=== PATIENT | female | born 1950 | race Caucasian/White ===

== ENCOUNTER → 2016-05-18 | Outpatient (CLI) | payer MEDICARE ==
--- NOTE | 2016-05-18 10:27 | RADIOLOGY REPORT PS360 ---
CHEST(2 VIEWS-NOT PORTABLE) HISTORY: Lung cancer follow-up HX OF LUNG CA-- YEARLY-- COMPARISON: 10/02/2015 FINDINGS: The cardiomediastinal silhouette and pulmonary vascularity are within normal limits. Status post left upper lobectomy with left apical pleural thickening, left-sided volume loss, and slightly elevated left hemidiaphragm. Surgical clips are present in the left hilar region. There are old left-sided rib fractures/surgical changes with some tenting of the left hemidiaphragm unchanged. Right apical fibrocalcific changes are noted. The right lung is otherwise clear. No acute bony anomalies. IMPRESSION: 1. Postsurgical changes. Stable compared to 10/02/2015
--- NOTE | 2016-05-18 10:53 | RADIOLOGY REPORT PS360 ---
DIG MAMM-SCREEN MARCO A W/CAD CAD Screening ORDERING PHYSICIAN : AMADOR MENDES APRN PATIENT AGE: 66 years GENDER: Female COMPARISON: Previous mammograms: June 2011 and March 2014 . Also film screen study from 2008 INDICATION: Routine screening 65-year-old. Taking estrogen. Partial hysterectomy. Also history of lung cancer. Note Patient reports a thick ridge of tissue at the left anterior chest wall. Chest x-ray also performed today. Family history. Paternal aunt with breast cancer. TECHNIQUE: Standard CC and MLO images were obtained. R2 CAD reviewed. FINDINGS: No significant interval change moderate breast density is seen at the retroareolar region and anterior breast bilaterally mild asymmetry is similar to previous studies with stable architecture. No dominant mass nor suspicious calcifications either breast. Areas of low-density asymmetric fibroglandular tissue are seen but unchanged and stable..,. Can be followed safely. IMPRESSION:...... Stable bilateral mammogram. No new areas of concern. BI-RADS CATEGORY: 1_Negative RECOMMENDED FOLLOWUP: 12M 12 MONTH FOLLOW-UP (A letter has been sent to the patient regarding results of the study.)
== END ==
LOC: RAD 09:30
DX: Z12.31 Encounter for screening mammogram for malignant neoplasm of breast (principal)
CPT/HCPCS: G0202

== ENCOUNTER → 2016-06-23 | Outpatient (CLI) | payer MEDICARE ==
--- NOTE | 2016-06-23 10:23 | CARDIOVASCULAR REPORT ---
"Cerebrovascular Exam Indications: 780.4 Dizziness and giddiness. IMPRESSIONS 1. The bilateral vertebral arteries are patent with normal antegrade flow. 2. Study suggests less than 20% stenosis involving the right internal carotid artery and the left internal carotid artery. Carotid duplex study. Complete study and Doppler flow study including spectral analysis, color and monroe scale imaging. Height: Height: 157.5cm. Height: 62in. Weight: Weight: 62.1kg. Weight: 136.7lb. Body mass index: BMI: 25.1kg/m^2. Body surface area: BSA: 1.66m^2. Location: Vascular laboratory. Patient status: Outpatient. Tables: Arterial flow: + +--------+--------+ |Location |V sys |V ed | + +--------+--------+ |Right CCA - proximal|112cm/s |40.9cm/s| + +--------+--------+ |Right CCA - distal |91.9cm/s|40.9cm/s| + +--------+--------+ |Right ECA |138cm/s |--------| + +--------+--------+ |Right ICA - proximal|94.3cm/s|41.9cm/s| + +--------+--------+ |Right ICA - mid |122cm/s |59.4cm/s| + +--------+--------+ |Right ICA - distal |115cm/s |49.5cm/s| + +--------+--------+ |Right vertebral |51.9cm/s|--------| + +--------+--------+ |Left CCA - proximal |104cm/s |36.9cm/s| + +--------+--------+ |Left CCA - distal |119cm/s |41.6cm/s| + +--------+--------+ |Left ECA |98.7cm/s|--------| + +--------+--------+ |Left ICA - proximal |103cm/s |42.7cm/s| + +--------+--------+ |Left ICA - mid |86.7cm/s|39.6cm/s| + +--------+--------+ |Left ICA - distal |126cm/s |49.7cm/s| + +--------+--------+ |Left vertebral |70.4cm/s|--------| + +--------+--------+ Velocity ratios: + + + + + + | |Right, V sys|Right, V ed|Left, V sys|Left, V ed| + + + + + + |Max ICA/dist CCA|1.33 |1.45 |1.06 |1.19 | + + + + + + (Report amended ) Electronically signed by: Yunior Ortega [id number]"
--- NOTE | 2016-06-24 10:38 | RADIOLOGY REPORT PS360 ---
MRI-BRAIN W/O HISTORY: Dizziness angulated in its, presyncope, headache, history of lung cancer DIZZINESS AND GIDDINESS ORDERING PHYSICIAN: AMADOR MENDES APRN PATIENT AGE: 66 years COMPARISON: None TECHNIQUE: Standard multiplanar multiecho sequences are performed without contrast. FINDINGS: No midline shift, mass effect, intracranial hemorrhage, hydrocephalus, or acute infarction. There is generalized cerebral atrophy which is more prominent in the frontal and parietal regions. Scattered periventricular and subcortical T2 white matter hyperintensities are present consistent with ischemic gliotic change from microvascular disease. No strictured diffusion evident that would indicate an area of acute infarction. The cerebellopontine angles, cerebellum, and brainstem are unremarkable. Partially the sella noted as a normal variant. Partial fusion of C2 and C3 vertebral bodies. Unremarkable hippocampal structures are symmetric temporal horns. No mastoid effusion or sinus air-fluid level IMPRESSION: 1. No acute intracranial pathology. 2. Moderate atrophy of the frontal and parietal lobes. 3. Mild periventricular ischemic gliotic change 4. No evidence of metastatic disease
== END ==
LOC: RAD 09:41
DX: R42 Dizziness and giddiness (principal)

== ENCOUNTER 2017-03-29 17:42 | Emergency (ER) | payer MEDICARE ==
[~2017-03-29] VITALS: Ht 160 cm; Wt 63.5 kg
--- OUTSIDE RECORDS SUMMARY | 2017-03-29 18:07 | External Medical Summary Rpt ---
Author Author DAVID Darling, [employer] Address Unknown Phone Unavailable
--- OUTSIDE RECORDS SUMMARY | 2017-03-29 18:07 | External Medical Summary Rpt | CCD ---
Demographics Preferred Language Yemeni Marital Status Unknown Moravian Affiliation Unknown Race Unknown Ethnic Group Unknown Author Author , DAVID HERNANDEZ Address Unknown Phone [email or web address] Immunization Name Date Rout CVX Reac Dose Comm Prov Is Faci e tion ent ider Refu lity Give sed n Hep 05-2 45 999 Hist H109 No H109 B, 4-19 oric UF 96 al Info rmat ion - Sour ce Unsp ecif ied
--- OUTSIDE RECORDS SUMMARY | 2017-03-29 18:07 | External Medical Summary Rpt | CCD ---
Author Author DAVID Address Unknown Phone [email or web address] Purpose Continuity of Care Document - through 2016
--- OUTSIDE RECORDS SUMMARY | 2017-03-29 18:07 | External Medical Summary Rpt | CCD ---
Author Author [employer] Organization [employer] Address Unknown Phone Unavailable Purpose Continuity of Care Document - through 2016
--- OUTSIDE RECORDS SUMMARY | 2017-03-29 18:07 | External Medical Summary Rpt | CCD ---
Author Author DAVID Address Unknown Phone [email or web address] Purpose Continuity of Care Document - through 2016
--- OUTSIDE RECORDS SUMMARY | 2017-03-29 18:07 | External Medical Summary Rpt | CCD ---
Demographics Preferred Language Paraguayan Marital Status Unknown Hoahaoism Affiliation Unknown Race Unknown Ethnic Group Unknown Author Author , DAVID HERNANDEZ Address Unknown Phone [email or web address] Immunization Name Date Rout CVX Reac Dose Comm Prov Is Faci e tion ent ider Refu lity Give sed n Hep 05-2 45 999 Hist H109 No H109 B, 4-19 oric UF 96 al Info rmat ion - Sour ce Unsp ecif ied
--- NOTE | 2017-03-29 19:03 | Emergency Room Report ---
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 N Clinical Suspician of Infection? N Mental Status: 1 - Regular (Normal Baseline) Sepsis Risk:Low Sepsis Risk Have you (or family members/close friends) recently traveled outside the [place]? N If Yes, where/when: Have you had exposure to infectious disease within the past month? TB? Other? Specify: Source patient, RN notes reviewed, family, RN/MD Exam Limitations no limitations Comment The patient is here with a foreign body sensation in her throat after eating steak around 4pm today, and feeling that a piece of this steak got stuck in her mid esophagus..Denies any previous similar episodes in the past. She tried to drink fluids since this event but everything "came right up". ALLERGIES Coded Allergies: No Known Allergies (03/29/17) History Medical History General COPD? Yes Gastric ulcers? Yes Cancer? Yes Site: LEFT LUNG Immunization Hx Ped.Immunizations UTD Yes DT/Tetanus 1-4 Years Ago Surgical Hx Previous Surgery?Y LUNG PARTIAL REMOVAL HYSTERECTOMY Social History Smoking Hx Smoker: Never Smoker Tobacco: No Type N/A Are you/the child exposed to second-hand smoke: No Alcohol Alcohol: No Review of Systems All Other Systems Reviewed and Negative Gastrointestinal nausea, vomiting Physical Exam Vital Signs Vital Signs Date Time Temp Pulse Resp B/P Pulse O2 O2 Flow FiO2 Ox Delivery Rate 03/29 1923 85 22 144/95 98 03/29 1746 85 22 157/99 98 General Appearance normal appearance, WD/WN, mild distress Respiratory Status Yes: trachea midline, chest symmetrical, non tender chest. No: respiratory distress. Lung Sounds bilateral: normal breath sounds, lungs clear. Cardiovascular normal exam, regular rate/rhythm, no peripheral edema, no gallop, no JVD, no murmur, no rub, normal peripheral pulses Gastrointestinal normal bowel sounds, soft, no organomegaly, tenderness ( epigastric tenderness) Extremities non-tender, normal range of motion, normal inspection Neurologic alert, maintenance representative II-XII nml as tested, normal exam, oriented x 3 Mental status normal mood/affect Skin intact, normal color, warm/dry Medical Decision Making LABS/Meds/Orders Pt receiving controlled substance in ED? No Comment 1814-case d/w Dr Oconnor, advised he will come in to evalaute the patient and take her to OR for EGD. 1844-RN advised the patient vomited the piece of stek and she is now able to drink fluids in no acute distress. 1899-dr Oconnor called back, advised of the update, will d/c patient home, and instruct her to see the surgeon in the office. Results/Orders Current Medication Orders Sig/Kelley Start time Last Medication Dose Route Stop Time Status Admin Metoclopramide HCl 10 MG ONCE ONE 03/29 1845 DC 03/29 IVP 03/29 1846 185 Metoclopramide HCl 0 .STK-MED ONE 03/29 184 DC .ROUTE Glucagon 1 MG ONCE ONE 03/29 1800 DC 03/29 IM 03/29 1801 180 Glucagon 0 .STK-MED ONE 03/29 175 DC .ROUTE Orders Procedure Date/time Status NECK SOFT TISSUE 03/29 1749 Active XRAY/CT/US XRAY/CT/US XRAY soft tissue lateral neck - no radio-opaque FB seen Departure Departure Time of Disposition 1933 Disposition DC Home or Self Care(routine) Clinical Impression Primary Impression: Foreign body Condition STABLE Referrals Elvin NERI,CONNIE Mensah APRN (Family) Patient Instructions DI for Foreign Body, Swallowed-Adult Additional Instructions Please follow-up with the general surgeon, Dr. Oconnor, call the office in the morning in order to schedule a follow-up appointment. Please follow-up with Connie Brennan, as well, in order to deteriorate your follow -up appointment. Discharge Counseling Counseled pt/family regarding diagnosis, test results, medications/RX, home care, follow up needs Comment Please follow-up with the general surgeon, Dr. Oconnor, call the office in the morning in order to schedule a follow-up appointment. Please follow-up with Connie Brennan, as well, in order to deteriorate your follow -up appointment. ED Critical Care Critical Care No at [id number]
[2017-03-29 19:23] VITALS: BP 144/95
--- NOTE | 2017-03-29 20:00 | RADIOLOGY REPORT PS360 ---
NECK SOFT TISSUE HISTORY: Choked on a piece of food FOOD BOLUS ORDERING PHYSICIAN: Jared Cade MD PATIENT AGE: 67 years COMPARISON: None FINDINGS: No obvious radio opaque foreign body apparent. On the lateral view there is some gas in the cervical esophagus. The epiglottis has an unremarkable appearance. IMPRESSION: No obvious radiopaque foreign body.
== END 2017-03-29 19:24 | disposition home or self-care (01) ==
LOC: ER 17:42
DX: T17.228A Food in pharynx causing other injury, initial encounter (principal)